=== PATIENT | female | born 1980 ===

== ENCOUNTER 2019-01-30 18:34 | Emergency (ER) | payer OTHER ==
--- NOTE | 2019-01-30 18:35 | EDM.PDOC ---
ED HPI GENERAL MEDICAL PROBLEM - General Stated Complaint: BURNED RT HAND WHILE USING HOT GLUE Time Seen by Provider: 01/30/19 18:35 Source of Information: Reports: Patient History Limitations: Reports: No Limitations - History of Present Illness INITIAL COMMENTS - FREE TEXT/NARRATIVE: HISTORY AND PHYSICAL: History of present illness: Patient is a 38-year-old female who presents to the emergency room with complaints of a burn to her right and her and she states she was using a hot glue gun when some of the glue got on her fingers. She does have some blistering noted to the inside aspect of her second, third, and fourth digit. These stahl are not circumferential and localized just to the proximal base of fingers. Her tetanus has been updated within the last 5 years. Review of systems: As per history of present illness and below otherwise all systems reviewed and negative. Past medical history: As per history of present illness and as reviewed below otherwise noncontributory. Surgical history: As per history of present illness and as reviewed below otherwise noncontributory. Social history: See social history for further information Family history: As per history of present illness and as reviewed below otherwise noncontributory. Physical exam: General: Well-developed and well-nourished 38-year-old female. Alert and oriented. Nontoxic appearing and in no acute distress. HEENT: Atraumatic, normocephalic, pupils equal and reactive bilaterally, negative for conjunctival pallor or scleral icterus, mucous membranes moist, trachea midline. No drooling or trismus noted. No meningeal signs. No hot potato voice noted. Lungs: Clear to auscultation, breath sounds equal bilaterally, chest nontender. Heart: S1S2, regular rate and rhythm without overt murmur Abdomen: Soft, nondistended, nontender. Skin: Small circular blisters noted to the right hand at the base of the second , third and fourth digit. These are non-circumferential. Approximately the size of a pencil eraser. Otherwise skin is intact, warm, dry. No lesions or rashes noted. Extremities: Moves all extremities per self without difficulty or deficits, negative for cords or calf pain. Neurovascular unremarkable. Neuro: Awake, alert, oriented. Cranial nerves II through XII unremarkable. Cerebellum unremarkable. Motor and sensory unremarkable throughout. Exam nonfocal. Notes: Patient reports that her tetanus is up-to-date. Wound care provided with Silvadene dressing. We'll give her some pain management as she states it is 10 out of 10 at this time. Supportive care measures were reviewed and discussed. Voices understanding and is agreeable to plan of care. Denies any further questions or concerns at this time. Diagnostics: None Therapeutics: Silvadene, wound care, Bascom Prescription: Bascom Impression: Burn Plan: 1. Keep the skin clean and dry. Continue to monitor for signs of improvement. Avoid popping any of the blisters. Apply the Silvadene sparingly twice daily over the next 7 days. 2. Tylenol and/or ibuprofen as needed for pain management. Bascom for moderate to severe pain. This medication may cause drowsiness so do not take it while driving or needing to be functioning outside of the house. 3. Please follow-up with your primary care provider or a hand surgeon as we discussed. Return to the ED as needed and as discussed. Definitive disposition and diagnosis as appropriate pending reevaluation and review of above. Right Hand Pain Score (Numeric/FACES): 10 - Related Data Allergies Allergy/AdvReac Type Severity Reaction Status Date / Time gluten Allergy celiac Verified 08/13/18 11:18 disease Home Meds: Home Meds Albuterol Sulfate [Proair Hfa] 1 - 2 puff INH ASDIRECTED PRN 08/13/18 [History] LORazepam 0.5 mg PO ASDIRECTED PRN 08/13/18 [History] Prazosin HCl [Prazosin] 1 mg PO BEDTIME 08/13/18 [History] QUEtiapine Fumarate [Quetiapine Fumarate] 200 mg PO BEDTIME 08/13/18 [History] Spironolactone 50 mg PO BEDTIME 08/13/18 [History] lamoTRIgine [Lamotrigine] 2 tab PO BEDTIME 08/13/18 [History] Desvenlafaxine Succinate [Pristiq] 01/30/19 [History] Past Medical History HEENT History: Reports: Other (See Below) Other HEENT History: wears glasses Respiratory History: Reports: Asthma Gastrointestinal History: Reports: Celiac Disease, Chronic Constipation, Other ( See Below) Other Gastrointestinal History: occasional heartburn Genitourinary History: Reports: None MOLDER PIPE COVERING History: Reports: Endometriosis Musculoskeletal History: Reports: Neck Pain, Chronic Psychiatric History: Reports: Anxiety, Bipolar, Depression Dermatologic History: Reports: Other (See Below) Other Dermatologic History: acne - Past Surgical History Head Surgeries/Procedures: Reports: None Female Surgical History: Reports: Hysterectomy Other Female Surgeries/Procedures: laparoscopy x3 for endometriosis ED ROS GENERAL - Review of Systems Review Of Systems: ROS reveals no pertinent complaints other than HPI. ED EXAM, BURN/SMOKE INHALATION - Physical Exam Exam: See Below (See dictation) Course - Vital Signs Last Recorded V/S: Last Vital Signs Temp 97.8 F 01/30/19 18:39 Pulse 79 01/30/19 18:39 Resp 24 H 01/30/19 18:39 BP 146/96 H 01/30/19 18:39 Pulse Ox 100 01/30/19 18:39 - Orders/Labs/Meds Meds: Medications Discontinued Medications Generic Name Dose Route Start Last Admin Trade Name Freq PRN Reason Stop Dose Admin Hydrocodone Bitart/Acetaminophen 1 tab 01/30/19 18:40 Bascom 325-5 Mg PO 01/30/19 18:41 ONETIME ONE Silver Sulfadiazine 1 gm 01/30/19 18:40 Silvadene 1% Cream 50 Gm TOP 01/30/19 18:41 ONETIME ONE Departure - Departure Time of Disposition: 18:49 Disposition: Home, Self-Care 01 Clinical Impression: Burn - Discharge Information Instructions: Burn Care, Adult, [id number] Referrals: PCP,None [Primary Care Provider] - Additional Instructions: The following information is given to patients seen in the emergency department who are being discharged to home. This information is to outline your options for follow-up care. We provide all patients seen in our emergency department with a follow-up referral. The need for follow-up, as well as the timing and circumstances, are variable depending upon the specifics of your emergency department visit. If you don't have a primary care physician on staff, we will provide you with a referral. We always advise you to contact your personal physician following an emergency department visit to inform them of the circumstance of the visit and for follow-up with them and/or the need for any referrals to a consulting specialist. The emergency department will also refer you to a specialist when appropriate. This referral assures that you have the opportunity for follow-up care with a specialist. All of these measure are taken in an effort to provide you with optimal care, which includes your follow-up. Under all circumstances we always encourage you to contact your private physician who remains a resource for coordinating your care. When calling for follow-up care, please make the office aware that this follow-up is from your recent emergency room visit. If for any reason you are refused follow-up, please contact the [facility] Emergency Department at and asked to speak to the emergency department charge nurse. [facility] [address] [place] [id number] [facility] [address] [place] [id number] 1. Keep the skin clean and dry. Continue to monitor for signs of improvement. Avoid popping any of the blisters. Apply the Silvadene sparingly twice daily over the next 7 days. 2. Tylenol and/or ibuprofen as needed for pain management. Bascom for moderate to severe pain. This medication may cause drowsiness so do not take it while driving or needing to be functioning outside of the house. 3. Please follow-up with your primary care provider or a hand surgeon as we discussed. Return to the ED as needed and as discussed.
[2019-01-30] MEDS ORDERED: Silver Sulfadiazine 1% Crm 50 GM Tube TOP ONE (18:40)
[2019-01-30] MEDS ORDERED: Acetaminophen/HYDROcodone 325-5 MG Tab PO ONE (18:40)
== END 2019-01-30 19:15 | disposition home or self-care (01) ==
LOC: MW.ED 18:34
DX: T23.231A Burn of second degree of multiple right fingers (nail), not including thumb, initial encounter (principal); J45.909 Unspecified asthma, uncomplicated; F41.9 Anxiety disorder, unspecified; F31.9 Bipolar disorder, unspecified; Z91.018 Allergy to other foods; Z79.899 Other long term (current) drug therapy; X19.XXXA Contact with other heat and hot substances, initial encounter
CPT/HCPCS: 16020; 99283; A9270